=== PATIENT | male | born 1965 | race Caucasian/White ===

== ENCOUNTER → 2020-10-20 09:57 | Outpatient (BNVA) | payer BC, SELFPAY | PROVIDERS: PCP Internal Medicine; Visit Provider Hospitalist ==

== ENCOUNTER 2023-02-27 08:48 | Outpatient (AMB) | payer BC, SELFPAY ==
--- NOTE | 2023-02-27 08:51 | MHC.OFFVIS ---
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 Overall the patient has been doing very well with the CPAP. The CPAP therapy continues to be very effective beneficial. He also feels more comfortable with his current mask. He does uses CPAP for more than 4 hours a night. He has been getting supplies readily available through his [employer] company, [employer]. He denies any respiratory issues. At this point continue CPAP therapy as it is very effective for him. [facility] Medical History (Updated 10/20/20 @ 22:31 by Vick Gutiérrez MD) PABLO on CPAP Social History (Updated 02/27/23 @ 08:54 by ERNESTINA Collins) Patient Tobacco Use Status: Never used Tobacco Review of Systems Const Denies daytime sleepiness, Denies difficulty sleeping, Denies night sweats and Denies snoring ENT Denies change in voice, Denies lip swelling, Denies mouth pain, Denies nasal congestion, Denies nasal discharge and Denies tongue swelling Card Denies chest pain Resp Denies cough and Denies snoring GI Denies abdominal pain Musc Denies no additional complaints Neuro Denies Neuro-related abnormal movements Psych Denies no additional complaints Rupert/Lymph Denies easy bleeding and Denies lymphadenopathy Aller/Immun Denies lip swelling and Denies tongue swelling Physical Exam Vital Signs: Last Vital Signs Pulse 66 02/27/23 08:52 Pulse Ox 96 02/27/23 08:52 Oxygen Delivery Method Room Air 02/27/23 08:52 BMI result Body Mass Index 35.2 Const General: alert Neck Neck: Yes normal visual inspection, Yes full ROM and Yes no lymphadenopathy Chest Chest palpation & inspection: normal inspection of the chest Resp Auscultation: clear to auscultation bilaterally Cardio Rate: regular rate Rhythm: regular rhythm Heart sounds: S1 normal heart sound present and S2 normal heart sound present GI Palpation (GI): Soft to palpation and nontender Auscultation: normal bowel sounds Skin General skin exam: rashes and/or lesions noted Assessment & Plan Assessment & Plan (1) PABLO on CPAP: Code(s): G47.33 - Obstructive sleep apnea (adult) (pediatric); Z99.89 - Dependence on other enabling machines and devices Plan: Continue APAP therapy F/U 12-18 months Plan continue APAP therapy F/U 12-18 months Coding Level of Care Code Est Pt Level 3 (76231) Diagnoses PABLO on CPAP G47.33; Z99.89 Time Spent (min) 15
[2023-02-27 08:52] VITALS: PULSE 66; O2SAT 96; BMI 35.2
== END 2023-02-27 10:51 | disposition home or self-care (01) ==
PROVIDERS: PCP Internal Medicine; Visit Provider Hospitalist
DX: G47.33 Obstructive sleep apnea (adult) (pediatric) (principal); Z99.89 Dependence on other enabling machines and devices
CPT/HCPCS: 99213

== ENCOUNTER → 2023-02-27 08:48 | Outpatient (BNVA) | payer BC, SELFPAY | PROVIDERS: PCP Internal Medicine; Visit Provider Hospitalist ==

== ENCOUNTER 2025-04-01 10:14 | Outpatient (AMB) | payer BC, SELFPAY ==
[2025-04-01 10:31] VITALS: BP 150/76; PULSE 69; O2SAT 96; BMI 36.5
--- NOTE | 2025-04-01 10:31 | A.OFFVIS_ITS ---
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 Overall the patient has been doing very well with the CPAP. The CPAP therapy continues to be very effective beneficial. He also feels more comfortable with his current mask. He does uses CPAP for more than 4 hours a night. He has been getting supplies readily available through his [employer] company, [employer]. He denies any respiratory issues. At this point continue CPAP therapy as it is very effective for him. 04/01/2025 the patient is here for pulmonary follow-up visit. Overall the patient has been doing well. CPAP therapy has been affecting beneficial. He does use it for more than 4 hours a night. He does use a nasal pillow mask and it seems to work well. Sometimes he does have some air leakage per for the most part he keeps his mouth closed. I will request a chinstrap for him to have in case he needs it. In the meantime he does have a cough. The cough is nonproductive in nature. Likely related to the lisinopril. The cough is moderate severity is nonproductive. He will talk to his primary care doctor about switching his age to an ARB the next time that he sees him. Otherwise the patient is doing good will follow-up in the next year or so. If he has any issues prior to that he can always call for an earlier assessment. [facility] Medical History (Updated 10/20/20 @ 22:31 by Vick Gutiérrez MD) PABLO on CPAP Social History Patient Tobacco Use Status: Never used Tobacco Review of Systems Const Denies daytime sleepiness, Denies difficulty sleeping, Denies night sweats and Denies snoring ENT Denies change in voice, Denies lip swelling, Denies mouth pain, Denies nasal congestion, Denies nasal discharge and Denies tongue swelling Card Denies chest pain Resp Denies cough and Denies snoring GI Denies abdominal pain Musc Denies no additional complaints Neuro Denies Neuro-related abnormal movements Psych Denies no additional complaints Rupert/Lymph Denies easy bleeding and Denies lymphadenopathy Aller/Immun Denies lip swelling and Denies tongue swelling Physical Exam Vital Signs: Last Vital Signs Pulse 69 04/01/25 10:31 BP 150/76 H 04/01/25 10:31 Pulse Ox 96 04/01/25 10:31 Oxygen Delivery Method Room Air 04/01/25 10:31 BMI result Body Mass Index 36.5 Const General: alert Neck Neck: Yes normal visual inspection, Yes full ROM and Yes no lymphadenopathy Chest Chest palpation & inspection: normal inspection of the chest Resp Auscultation: clear to auscultation bilaterally Cardio Rate: regular rate Rhythm: regular rhythm Heart sounds: S1 normal heart sound present and S2 normal heart sound present GI Palpation (GI): Soft to palpation and nontender Auscultation: normal bowel sounds Skin General skin exam: rashes and/or lesions noted Assessment & Plan Assessment & Plan (1) PABLO on CPAP: Code(s): G47.33 - Obstructive sleep apnea (adult) (pediatric); Z99.89 - Dependence on other enabling machines and devices Category: Medical Plan: Continue APAP therapy F/U 12-18 months Plan continue APAP therapy F/U 12-18 months Coding Level of Care Code Est Pt Level 3 (14209) Diagnoses PABLO on CPAP G47.33; Z99.89 Time Spent (min) 15
--- OUTSIDE RECORDS SUMMARY | 2025-04-01 12:33 | XMS_ITS | Clinical Summary ---
Author Organization [facility] Address [address] [place] [address] Care Team Providers Care Fisher Trammel Net Name Role Phone Dandre Mcdonald MD Primary Care Provider [phone] Allergies No known active allergies Medications Medication Sig Dispensed Refills Start Date End Date Status pravastatin (PRAVACHOL) tablet 40 mg Take 40 mg by mouth daily. 6 04/29/2018 Active lisinopril (PRINIVIL,ZESTRIL) tablet 5 mg Take 5 mg by mouth daily. 6 04/29/2018 Active Active Problems Problem Noted Date Diagnosed Date Shoulder stiffness, right 12/28/2018 Postop check 08/28/2018 Partial nontraumatic tear of right rotator cuff 06/20/2018 Subacromial bursitis of right shoulder joint 09/2017 Family History Medical History Relation Name Comments Cancer Father Heart disease Father Hyperlipidemia Father Hypertension Father Diabetes Mother Hypertension Mother Relation Name Status Comments Father Mother Social History Tobacco Use Types Packs/Day Years Used Date Smoking Tobacco: Never Smokeless Tobacco: Never Alcohol Use Standard Drinks/Week Comments Yes 5 (1 standard drink = 0.6 oz pur e alcohol) Sex and Gender Information Value Date Recorded Sex Assigned at Not on file Gender Identity Not on file Sexual Orientation Not on file Last Filed Vital Signs Vital Sign Reading Time Taken Comments Blood Pressure - - Pulse - - Temperature - - Respiratory Rate - - Oxygen Saturation - - Inhaled Oxygen Concentration - - Weight 95.3 kg (210 lb) 08/07/2018 9:14 AM EST Height 170.2 cm (5' 7 ) 08/07/2018 9:14 AM EST Body Mass Index 32.89 08/07/2018 9:14 AM EST Plan of Treatment Health Maintenance Due Date Last Done Comments Hepatitis B Vaccines (1 of 3 - 3-dose series) 1966 Hepatitis C Screening 1966 COVID-19 Vaccine (#1) 1966 Depression Screening 1978 BMI Counseling 1984 Preventative Health Evaluation 1984 DTap / Tdap / Td (1 - Tdap) 1985 Colon Cancer Screening (Colonoscopy) 2011 Shingrix-Zoster Vaccine (1 of 2) 2016 Influenza Vaccine (#1) 2025 Pneumococcal Vaccine Aged Out No long er eligible based on patient's age to complete this topic RSV Ped < 20 months Aged Out No longe r eligible based on patient's age to complete this topic Care Teams Fisher Trammel Net Relationship Specialty Start Date End Date Dandre Mcdonald MD [address] [place] [address] PCP - General Internal Medicine 04/11/18
== END 2025-04-01 10:52 | disposition home or self-care (01) ==
LOC: HO.HPS 10:15
PROVIDERS: PCP Internal Medicine; Visit Provider Hospitalist
DX: G47.33 Obstructive sleep apnea (adult) (pediatric) (principal); Z99.89 Dependence on other enabling machines and devices
CPT/HCPCS: 99213